=== PATIENT | female | born 1950 | race Caucasian/White ===

== ENCOUNTER → 2017-12-24 09:39 | Outpatient (CLI) | payer MEDICARE, SELFPAY ==
--- NOTE | 2017-12-24 | DI.RAD.S_ITS ---
PROCEDURE: XR HIP W PEL IF DONE RT 2V INDICATIONS: RIGHT HIP PAIN TECHNIQUE: 2 views of the hip were acquired. COMPARISON: [facility], CR, HIP 2V RIGHT, 08/28/2007, 15:49. [facility], CR, XR HIP 2VW LT, 07/12/2015, 10:13. FINDINGS: Bones: No fractures or dislocations. No suspicious bony lesions. The visualized pelvic ring appears intact. Subchondral sclerosis and spurring is present. There is mild to moderate hip joint space narrowing. Lower lumbar discogenic changes are seen. Soft tissues: No suspicious soft tissue calcifications or masses. IMPRESSION: [id number] right hip joint degeneration, progressed since 08/28/07. Dictated by: Timothy Lim M.D. on 12/24/2017 at 14:16 Approved by: Timothy Lim M.D. on 12/24/2017 at 14:17
== END ==
PROVIDERS: PCP Internal Medicine; Visit Provider Internal Medicine
DX: M25.551 Pain in right hip (principal); M16.11 Unilateral primary osteoarthritis, right hip
CPT/HCPCS: 73502

== ENCOUNTER → 2019-03-31 11:01 | Outpatient (CLI) | payer MEDICARE, MEDICAID, SELFPAY ==
[2019-03-31 12:04] LABS: Add Manual Diff / Slide Review NO; Basophils Absolute Auto 100 /uL (0-100); Basophils Percent Auto 0.9 % (0-2); Eosinophils Absolute Auto 100 /uL (0-450); Eosinophils Percent Auto 1.5 % (2-4); Hematocrit 41.3 % (36-46); Hemoglobin 14.1 g/dL (12.0-16.0); Lymphocytes Absolute Auto 1600 /uL (1100-4500); Mean Corpuscular Hemoglobin 32.1 PG (26-34); Mean Corpuscular Volume 94.4 fL (80-100); Monocytes Absolute Auto 400 /uL (0-900); Monocytes Percent Auto 5.2 % (3-14); Neutrophils Absolute Auto 5500 /uL (1500-7000); Neutrophils Percent Auto 71.4 % (50-75); Platelet Count 326 X10^3/uL (150-400); Red Blood Cell Count 4.38 X10^6/uL (4.0-5.2); Red Cell Distribution Width 13.5 % (11.6-14.8); White Blood Cell Count 7.7 X10^3/uL (4.5-11.0)
[2019-03-31 12:23] LABS: Erythrocyte Sedimentation Rate 12 MM/HR (0-20)
[2019-03-31 12:28] LABS: Alanine Aminotransferase 15 IU/L (<35); Albumin 4.9 g/dL (3.5-5.0); Albumin Globulin Ratio 1.7 (1.0-2.8); Alkaline Phosphatase 82 U/L (38-126); Aspartate Aminotransferase 23 IU/L (14-36); BUN Creatinine Ratio 18.6 (6-22); Bilirubin Total 0.8 mg/dL (0.2-1.3); Blood Urea Nitrogen 13 mg/dL (7-17); Calcium 10.7 mg/dL (8.4-10.2); Carbon Dioxide 26 mmol/L (22-32); Chloride 104 mmol/L (98-107); Cholesterol 238 mg/dL (140-199); Estimated Glomerular Filt Rate > 60.0 mL/min (>60); Globulin 2.9 g/dL (1.7-4.1); Glucose 103 mg/dL (80-110); HDL Cholesterol 59 mg/dL (40-60); HEMOLYSIS < 15 (0-50); LDL Cholesterol Calculated 149 mg/dL (<100); Lipase 98 U/L (23-300); Potassium 4.2 mmol/L (3.4-5.1); Sodium 141 mmol/L (137-145); Total Protein 7.8 g/dL (6.3-8.2); Triglycerides 152 mg/dL (35-150)
[2019-03-31 12:57] LABS: TSH w/ Reflex to FT4 1.37 uIU/mL (0.47-4.68)
[2019-03-31 16:44] LABS: Vitamin D 25 Hydroxy (D3) 25.4 ng/mL (30.0-100.0)
== END ==
PROVIDERS: Family Provider Internal Medicine; PCP Student in an Organized Health Care Education/Training Program; Visit Provider Student in an Organized Health Care Education/Training Program
DX: Z13.220 Encounter for screening for lipoid disorders (principal); K52.9 Noninfective gastroenteritis and colitis, unspecified; Z90.49 Acquired absence of other specified parts of digestive tract; Z91.89 Other specified personal risk factors, not elsewhere classified; K90.9 Intestinal malabsorption, unspecified; R10.12 Left upper quadrant pain
CPT/HCPCS: 36415; 80053; 80061; 82306; 83516; 83690; 84443; 85025; 85651

== ENCOUNTER → 2019-04-02 09:53 | Outpatient (CLI) | payer MEDICARE, MEDICAID, SELFPAY ==
[2019-04-08 14:19] LABS: Fecal Fat, Qualitative NORMAL (NORMAL)
[2019-04-10 09:30] LABS: Calprotectin, Stool < 15.6 mcg/g
[2019-04-12 10:41] LABS: H. Pylori Antigen Stool NOT DETECTED
== END ==
PROVIDERS: PCP Student in an Organized Health Care Education/Training Program; Visit Provider Student in an Organized Health Care Education/Training Program
DX: K52.9 Noninfective gastroenteritis and colitis, unspecified (principal); K90.9 Intestinal malabsorption, unspecified; R10.12 Left upper quadrant pain
CPT/HCPCS: 82710; 83993; 84376; 86677

== ENCOUNTER → 2019-04-07 10:02 | Outpatient (CLI) | payer MEDICARE, MEDICAID, SELFPAY ==
[2019-04-07 12:50] LABS: Occult Blood 1 Negative (Negative); Occult Blood 2 Negative (Negative)
[2019-04-07 12:51] LABS: Occult Blood 3 Negative (Negative)
== END ==
PROVIDERS: PCP Student in an Organized Health Care Education/Training Program; Visit Provider Student in an Organized Health Care Education/Training Program
DX: K52.9 Noninfective gastroenteritis and colitis, unspecified (principal); K90.9 Intestinal malabsorption, unspecified; R10.12 Left upper quadrant pain
CPT/HCPCS: 82270

== ENCOUNTER → 2019-07-27 09:57 | Outpatient (CLI) | payer MEDICARE, MEDICAID, SELFPAY ==
--- NOTE | 2019-07-27 | DI.CT.S_ITS ---
PROCEDURE: CT ABDOMEN PELVIS W CON INDICATIONS: Left upper quadrant pain TECHNIQUE: After the administration of oral and intravenous contrast, 5 mm thick sections acquired from the diaphragms to the symphysis. 5 mm thick coronal and sagittal reformats were performed. For radiation dose reduction, the following was used: automated exposure control, adjustment of mA and/or kV according to patient size. COMPARISON: [facility], CT, ABD/PELVIS W/CON (PNL), 08/18/2014, 14:06. FINDINGS: Image quality: There is mild motion artifact. ABDOMEN: Lung bases: There is mild subpleural scarring in the medial right lower lobe. Heart size is normal. Solid organs: Evaluation of the liver demonstrates no focal hepatic lesions. The gallbladder is surgically absent. Biliary system is non-dilated. Pancreas enhances normally. No peripancreatic fat stranding or fluid collections. No pancreatic duct dilatation. The spleen is normal in size. No adrenal nodules. Kidneys demonstrate no hydronephrosis. Peritoneum and bowel: Stomach, small bowel, and colon loops are normal in caliber and wall thickness. There is colonic diverticulosis without acute diverticulitis. There are scattered air-fluid levels throughout the colon suggestive of a gastroenteritis. No free fluid or air. Nodes and vessels: No retroperitoneal or mesenteric adenopathy. Aorta and inferior vena cava are normal in caliber. Miscellaneous: No ventral hernias. PELVIS: Genitourinary: Bladder wall thickness is normal. There is a small cyst in the right adnexa region measuring up to 2.3 x 1.3 cm which appears similar in appearance to the prior study. Miscellaneous: No inguinal hernias or adenopathy. Bones: No suspicious bony lesions. No vertebral body compression fractures. IMPRESSION: 1. Scattered air-fluid levels throughout the colon suggestive of a gastroenteritis. 2. Colonic diverticulosis without acute diverticulitis. Dictated by: Ashutosh Brennan M.D. on 07/27/2019 at 15:22 Approved by: Ashutosh Brennan M.D. on 07/27/2019 at 15:28
[2019-07-27 10:35] LABS: BUN Creatinine Ratio 28.6 (6-22); Blood Urea Nitrogen 18 mg/dL (7-17); Estimated Glomerular Filt Rate > 60.0 mL/min (>60)
== END ==
PROVIDERS: PCP Student in an Organized Health Care Education/Training Program; Referring Provider Internal Medicine Gastroenterology; Visit Provider Internal Medicine Gastroenterology
DX: R10.12 Left upper quadrant pain (principal); R11.0 Nausea; R63.4 Abnormal weight loss; K57.90 Diverticulosis of intestine, part unspecified, without perforation or abscess without bleeding; N94.89 Other specified conditions associated with female genital organs and menstrual cycle; Z90.49 Acquired absence of other specified parts of digestive tract; J98.4 Other disorders of lung
CPT/HCPCS: 36415; 74177; 82565; 84520; Q9967

== ENCOUNTER → 2019-07-29 08:27 | Outpatient (CLI) | payer MEDICARE, MEDICAID, SELFPAY ==
[2019-07-29 09:30] LABS: Vitamin D 25 Hydroxy (D3) 33.5 ng/mL (30.0-100.0)
[2019-07-30 07:35] LABS: Calcium 10.3 mg/dL (8.7-10.3); Parathyroid Hormone, Intact 34 pg/mL (15-65)
== END ==
PROVIDERS: PCP Student in an Organized Health Care Education/Training Program; Referring Provider Student in an Organized Health Care Education/Training Program; Visit Provider Student in an Organized Health Care Education/Training Program
DX: E55.9 Vitamin D deficiency, unspecified (principal)
CPT/HCPCS: 36415; 82306; 82310; 83970

== ENCOUNTER 2019-10-05 11:15 | Outpatient (RCR) | payer MEDICARE, SELFPAY ==
--- NOTE | 2019-09-27 16:17 | PT.OIE ---
Current Diagnoses Sciatica, unspecified side (09/27/19) Past Medical History (Last Updated 04/10/19 @ 20:07 by Mary Chavez) Abnormal Pap smear of cervix (Resolved ~1980) Asthma (Chronic ~1994) Cataracts, bilateral (Chronic ~2014) Cervical cancer (Inactive ~1980) Chicken pox (Resolved) Colon polyps (Inactive ~2004) Diverticular disease (Inactive ~2004) Hip pain (Chronic ~2009) Hypertension (Chronic ~2017) Measles (Resolved ~1959) Vertigo (Chronic ~2014) Past Surgical History (Last Updated 04/10/19 @ 20:07 by Mary Chavez) Anesthesia (Resolved) History of arthroplasty (Resolved ~08/2017) History of arthroscopy (Resolved ~07/2013) History of cholecystectomy (Resolved ~11/1974) History of hemicolectomy (Acute ~2005) History of hysterectomy (Resolved ~10/1980) Visit Care Team Role Provider Type Deonte Sparks MD Attending Provider Physician Primary Care Provider Referring Provider Specialty: Internal Medicine Address: [address] [place] [address], [address], [facility] Email: [email or web address] Physical Therapy Initial Evaluation PT-OP-A Visit Information Start: 09/27/19 14:43 Freq: Status: Active Protocol: Document 09/27/19 11:16 HH (Rec: 09/27/19 16:17 [email or web address]) Out-Patient Physical Therapy Visit Information Visit Information Visit Type Initial Evaluation Visit Start Time 11:16 Visit Stop Time 12:00 Total Visit Minutes 44 Visit Number 03/28 Number of MARKETING COMMUNICATION MANAGER Visits 0 Evaluation Information Evaluation Date 09/27/19 PT-OP-B Current Condition Start: 09/27/19 14:43 Freq: Status: Active Protocol: Document 09/27/19 11:16 HH (Rec: 09/27/19 16:17 [email or web address]) Current Condition History of Current Condition Onset Date >5 years ago Current Complaints c/o sciatica pain, R hip pain and difficulty in walking, poor activity crispin History of Current Condition Pt is a 68 yo female here for R sciatica and hip pain who has significant difficulty in walking. She had an accident that her R hip got kicked by a horse multiple times 6 years ago but x-ray showed no fx. She stated her R hip started hurting every since and keeping herself such as hiking to strength her hip seemed to help, but she havent done that for awhile. She c/o her pain has been significantly worse since June with intermittent burning/ lightening pain from her R hip to back of the thigh. No numbness / weakness noted. She currently has difficulty walking >200-300 feet or sit > 30 mins. Pt went to see Dr. Price and ordered MRI consult and participate physical therapy. Pt had a cortisone shot last year and that did not help. Pt reports standing short period of time and laying down relieve her symptoms. Prior Treatments and Tests X-ray from years ago showed - ve for fx Future Testing and Treatments Planned Pt would have MRI if Pt failed Treatment Goals Patient/Caregiver Goals 1. to relieve her pain so she can walk and sit as much as she can 2. to increase her hip strength and balance. Current Functional Impairments (Reported) Functional Limitations- ADL's unable to sit > [address] d/t pain. Functional Limitations- Mobility/Gait unable to walk > 200-300 ft without sitting breaks pt uses [facility] for mobility PT-OP-C Subjective Start: 09/27/19 14:43 Freq: Status: Active Protocol: Document 09/27/19 11:16 (Rec: 09/27/19 16:17 [email or web address]) Patient Questionnaires Oswestry Low Back Index Oswestry Score 62 Oswestry Impairment 60 to 79% Impaired (Score 60- 79) OP-PT Pain Assessment Location R buttock Intensity 8 Scale Used Numeric (0 - 10) Description Aching,Burning,Sharp,Shooting Frequency Intermittent Pain Aggravating Factors Position,Activity,Exercise, Walking,Bending Pain Alleviating Factors Inactivity,Lying Supine, Standing PT-OP-D Balance Start: 09/27/19 14:43 Freq: Status: Active Protocol: Document 09/27/19 11:16 (Rec: 09/27/19 16:17 [email or web address]) Balance Tests Single Limb Standing Single Limb- Right 0 Single Limb- Left 5 PT-OP-F Manual Assessment Start: 09/27/19 14:43 Freq: Status: Active Protocol: Document 09/27/19 11:16 (Rec: 09/27/19 16:17 [email or web address]) Manual Assessments Soft Tissue Assessment Soft Tissue Mobility Assessment significant tenderness to pressure at R piriformis and R hip extensors. Pt screamed for pain with PT pressure. PT-OP-G Mobility & Gait Start: 09/27/19 14:43 Freq: Status: Active Protocol: Document 09/27/19 11:16 HH (Rec: 09/27/19 16:17 [email or web address]) OP Gait Assessment Assistive Devices Assistive Device Straight Cane Gait Deviations General Gait Pattern Antalgic,Decreased Stride Length,Decreased Feet Clearance,Lateral Trunk Lean Comments Gait Comments pt amb with R knee valgus and significant internal rotated R hip. dec heel strike and push off,. PT-OP-H Neuro Start: 09/27/19 14:43 Freq: Status: Active Protocol: Document 09/27/19 11:16 HH (Rec: 09/27/19 16:17 [email or web address]) Sensation Evaluation Gross Sensation Gross Sensation WNL Deep Tendon Reflex & Clonus Assessment Deep Tendon Reflex Bilateral Achilles Deep Tendon Reflex 2+ Normal Bilateral Patellar Deep Tendon Reflex 2+ Normal PT-OP-J Posture/Palpation/Skin Start: 09/27/19 14:43 Freq: Status: Active Protocol: Document 09/27/19 11:16 HH (Rec: 09/27/19 16:17 [email or web address]) Posture Evaluation Position Standing Evaluation View Anterior Weight Distribution Weight Shifted Left,Decreased Wt.Bear on (R) Hip Posture (R) Internally Rotated Knee Posture (R) Ext. Tibial Torsion Ankle/Foot Posture (R) Pronated PT-OP-K Range of Motion Start: 09/27/19 14:43 Freq: Status: Active Protocol: Document 09/27/19 11:16 HH (Rec: 09/27/19 16:17 [email or web address]) Hip Goniometric Range of Motion Hip Right Active Hip ROM WFL No Internal Rotation 65 External Rotation 25 Left Active Hip ROM WFL Yes Internal Rotation 50 External Rotation 35 Hip ROM Limitations Hip ROM Limitations Pain Comments pain at end range of ER Knee Goniometric Range of Motion Knee Left Knee ROM WFL Yes Patient Position Prone Flexion Active (degrees) 110 Right Knee ROM WFL Yes Patient Position Prone Flexion Active (degrees) 100 PT-OP-L Special Tests Start: 09/27/19 14:43 Freq: Status: Active Protocol: Document 09/27/19 11:16 HH (Rec: 09/27/19 16:17 HH [email or web address]) Special Tests Lumbar Spine Special Tests Slump Test Results -ve B Hip Special Tests DANICA Test Results + ve R Comments pain noted at R hip joint Scour Test Test Results +ve R Straight Leg Raise Test Results -ve B PT-OP-M Strength Start: 09/27/19 14:43 Freq: Status: Active Protocol: Document 09/27/19 11:16 (Rec: 09/27/19 16:17 [email or web address]) Hip Strength Hip Manual Muscle Testing Right Flexion (L2) 3+ Fair+ Extension (S1) 3- Fair- Abduction 3- Fair- Adduction 4- Good- External Rotation 3- Fair- Internal Rotation 3- Fair- Left Flexion (L2) 4+ Good+ Extension (S1) 4+ Good+ Abduction 4+ Good+ Adduction 4+ Good+ Knee Strength Knee Manual Muscle Testing Left Flexion (S2) 4 Good Extension (L3) 4 Good Right Flexion (S2) 4 Good Extension (L3) 4 Good Ankle/Foot Strength Ankle and Foot Manual Muscle Testing Right Dorsiflexion (L4) 4+ Good+ Plantarflexion (S1) 4+ Good+ Inversion 4+ Good+ Eversion (S1) 4+ Good+ Left Dorsiflexion (L4) 4+ Good+ Plantarflexion (S1) 4+ Good+ Inversion 4+ Good+ Eversion (S1) 4+ Good+ Toe Strength Toe Manual Muscle Testing Left Great Toe Flexion 5 Normal Extension 5 Normal Right Great Toe Flexion 5 Normal Extension 5 Normal PT-OP-Q Treatments Start: 09/27/19 14:43 Freq: Status: Active Protocol: Document 09/27/19 11:16 (Rec: 09/27/19 16:17 [email or web address]) Manual Therapy Treatment Soft Tissue Mobilization R piriformis Mobilization Type Sustained Pressure,Trigger Point Release Intensity/Depth Superficial Body Position Prone Comments significant pain noted PT-OP-T Assessment and Plan Start: 09/27/19 14:43 Freq: Status: Active Protocol: Document 09/27/19 11:16 (Rec: 09/27/19 16:17 [email or web address]) Physical Therapy Assessment Rehab Potential Rehabilitation Potential Good Evaluation Complexity Number of Personal Factors/Comorbidities 3 or More Number of Body Systems Impaired 3 Clinical Presentation at Evaluation Stable Impairments Impairments Activity Tolerance,Balance, Functional Activities, Functional Mobility,Gait,Pain, Posture,ROM,Soft Tissue Mobility,Strength,Transfers Other Concerns Fall Risk yes Goals pain Impairment pt has significant pain for amb and sitting. Short Term Goal (STG) Pt will be able to amb without SPC and crispin sitting >40 minutes. STG Duration 4 weeks Shuttle Hand Goal (LTG) Pt will be able to amb without SPC for 1 mile with pain no more than 3/10. LTG Duration 8 weeks ROM Impairment lack of R hip ER Nursing Home Goal (LTG) Pt will gain >10 degrees of R ER to improve her gait quality with dec R knee valgus and internal rotated hip. LTG Duration 8 weeks Oswestry Impairment pt scores 62 Short Term Goal (STG) Pt will score 50 or lower on Oswestry LBP questionnaire STG Duration 4 weeks Shuttle Hand Goal (LTG) Pt will score 40 or lower on Oswestry LBP questionnaire to improve her quality of life. LTG Duration 8 weeks Assessment Summary Assessment This is a mod complexity evaluation for this 68 yo female here for significant R sciatica and R hip pain with difficulty in walking 6-9/10. Upon assessment, pt shows possible piriformis syndrome and hip labral disorder since she has very limited hip ER and extension. She amb with a SPC and a significant R knee valgus with internal rotated hip. Her pain is primarily reproduced by manual pressure at R piriformis but did feel relieved after manual therapy. There's no sensation or weakness noted distally which rule out radiculopathy from L/ S. Pt will benefit from skilled therapy to improve her hip ER, hip stabilizer strength, gait efficiency and overall balance so patient can amb with minimal discomfort without any assistive device. Physical Therapy Plan Frequency and Duration Frequency of Treatment 2x/Week Duration of Treatment 8 weeks Plan of Care Start Date 09/27/19 Plan of Care End Date 11/26/19 Therapeutic Interventions Therapeutic Interventions Aquatic Therapy,Balance Training,Gait Training,Home Exercise Program,Joint Mobilizations,Manual Therapy, Neuromuscular Re-education, Patient/Caregiver Education, Self-Care/Home Management,Soft Tissue Mobilization,Taping, Therapeutic Activities, Therapeutic Exercises Modalities Cold Pack/Ice Massage,Electric Stimulation,Hot Packs, Infrared Therapy,Traction- Mechanical Next Visit Focus/Plan Next Note Type Treatment Note Next Visit Plan check post session tolerance R glute ,piriformis, hip adductorsmanual therapy provide HEP with hip ER stretch, tennis ball release, quad stretch,
--- NOTE | 2019-09-27 16:17 | PT.OPPOC ---
Physical, Occupational & Speech Therapy At [facility] Current Diagnoses Sciatica, unspecified side (09/27/19) Visit Care Team Role Provider Type Deonte Sparks MD Attending Provider Physician Primary Care Provider Referring Provider Specialty: Internal Medicine Address: [address] [place] [address], [address], [address] Email: [email or web address] Plan Of Care PT-OP-T Assessment and Plan Start: 09/27/19 14:43 Freq: Status: Active Protocol: Document 09/27/19 11:16 HH (Rec: 09/27/19 16:17 [email or web address]) Physical Therapy Assessment Rehab Potential Rehabilitation Potential Good Evaluation Complexity Number of Personal Factors/Comorbidities 3 or More Number of Body Systems Impaired 3 Clinical Presentation at Evaluation Stable Impairments Impairments Activity Tolerance,Balance, Functional Activities, Functional Mobility,Gait,Pain, Posture,ROM,Soft Tissue Mobility,Strength,Transfers Other Concerns Fall Risk yes Goals pain Impairment pt has significant pain for amb and sitting. Short Term Goal (STG) Pt will be able to amb without SPC and crispin sitting >40 minutes. STG Duration 4 weeks Long-Term Goal (LTG) Pt will be able to amb without SPC for 1 mile with pain no more than 3/10. LTG Duration 8 weeks ROM Impairment lack of R hip ER Long-Term Goal (LTG) Pt will gain >10 degrees of R ER to improve her gait quality with dec R knee valgus and internal rotated hip. LTG Duration 8 weeks Oswestry Impairment pt scores 62 Short Term Goal (STG) Pt will score 50 or lower on Oswestry LBP questionnaire STG Duration 4 weeks Associate Material Handler Goal (LTG) Pt will score 40 or lower on Oswestry LBP questionnaire to improve her quality of life. LTG Duration 8 weeks Assessment Summary Assessment This is a mod complexity evaluation for this 68 yo female here for significant R sciatica and R hip pain with difficulty in walking 6-9/10. Upon assessment, pt shows possible piriformis syndrome and hip labral disorder since she has very limited hip ER and extension. She amb with a SPC and a significant R knee valgus with internal rotated hip. Her pain is primarily reproduced by manual pressure at R piriformis but did feel relieved after manual therapy. There's no sensation or weakness noted distally which rule out radiculopathy from L/ S. Pt will benefit from skilled therapy to improve her hip ER, hip stabilizer strength, gait efficiency and overall balance so patient can amb with minimal discomfort without any assistive device. Physical Therapy Plan Frequency and Duration Frequency of Treatment 2x/Week Duration of Treatment 8 weeks Plan of Care Start Date 09/27/19 Plan of Care End Date 11/26/19 Therapeutic Interventions Therapeutic Interventions Aquatic Therapy,Balance Training,Gait Training,Home Exercise Program,Joint Mobilizations,Manual Therapy, Neuromuscular Re-education, Patient/Caregiver Education, Self-Care/Home Management,Soft Tissue Mobilization,Taping, Therapeutic Activities, Therapeutic Exercises Modalities Cold Pack/Ice Massage,Electric Stimulation,Hot Packs, Infrared Therapy,Traction- Mechanical Next Visit Focus/Plan Next Note Type Treatment Note Next Visit Plan check post session tolerance R glute ,piriformis, hip adductorsmanual therapy provide HEP with hip ER stretch, tennis ball release, quad stretch, Plan of Care Dates Plan of Care Start Date 09/27/19 Plan of Care End Date 11/26/19 Electronically Signed by: Maged Ponce PT 09/27/19 [id number] Please Sign and Return: I have reviewed this Plan of Care and certify that the skilled therapy services above are required to meet the patient?s needs. Physician Signature Date Printed Name and Credentials Clinical Instructor Signature Printed Name and Credentials
--- NOTE | 2019-10-01 11:27 | PT-OP ANOTE ---
Pt called early this am and changed appt to 10/05/19. DEBURRER MACHINE called patient and having a rough day today and unable to walk to the [facility] to atttend appt so moved to next week. Pt stated would like to continue to gain benefits of what PT can offer. Confirmed 10/04 appts.
--- NOTE | 2019-10-05 12:12 | PT.OTN ---
Current Diagnoses Sciatica, unspecified side (10/05/19) Physical Therapy Treatment Note PT-OP-A Visit Information Start: 09/27/19 14:43 Freq: Status: Active Protocol: Document 10/05/19 11:18 TP (Rec: 10/05/19 12:47 TP [id number]) Out-Patient Physical Therapy Visit Information Visit Information Visit Type Treatment Note Visit Note Student ANDRES De Leon supervised by ANDRES Malik. Visit Start Time 11:18 Visit Stop Time 12:12 Total Visit Minutes 54 Visit Number 04/28 Number of [employer] Visits 1 PT-OP-B Current Condition Start: 09/27/19 14:43 Freq: Status: Active Protocol: Document 09/27/19 11:16 HH (Rec: 09/27/19 16:17 HH [email or web address]) Current Condition History of Current Condition Onset Date >5 years ago Current Complaints c/o sciatica pain, R hip pain and difficulty in walking, poor activity crispin History of Current Condition Pt is a 68 yo female here for R sciatica and hip pain who has significant difficulty in walking. She had an accident that her R hip got kicked by a horse multiple times 6 years ago but x-ray showed no fx. She stated her R hip started hurting every since and keeping herself such as hiking to strength her hip seemed to help, but she havent done that for awhile. She c/o her pain has been significantly worse since June with intermittent burning/ lightening pain from her R hip to back of the thigh. No numbness / weakness noted. She currently has difficulty walking >200-300 feet or sit > 30 mins. Pt went to see Dr. Price and ordered MRI consult and participate physical therapy. Pt had a cortisone shot last year and that did not help. Pt reports standing short period of time and laying down relieve her symptoms. Prior Treatments and Tests X-ray from years ago showed - ve for fx Future Testing and Treatments Planned Pt would have MRI if Pt failed Treatment Goals Patient/Caregiver Goals 1. to relieve her pain so she can walk and sit as much as she can 2. to increase her hip strength and balance. Current Functional Impairments (Reported) Functional Limitations- ADL's unable to sit > [address] d/t pain. Functional Limitations- Mobility/Gait unable to walk > 200-300 ft without sitting breaks pt uses SPC for mobility PT-OP-C Subjective Start: 09/27/19 14:43 Freq: Status: Active Protocol: Document 10/05/19 11:18 TP (Rec: 10/05/19 12:47 TP [id number]) OP-PT Subjective Patient Comments Patient Comments Pt reports pain today, more than 10/10. Using heat on back to relieve pain. Experiences shooting nerve pain in R leg that causes leg to give out. Nerve pain can't be predicted and doesn't have a particular time of day that is impacted more. Always uses a cane on same side as involved leg. Can do lawn care at home, using lightweight electric tools in standing position. Goes on walks on the beach (uneven terrain). Using tennis ball for self-massage is too intense in supine. 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 PT-OP-D Balance Start: 09/27/19 14:43 Freq: Status: Active Protocol: Document 09/27/19 11:16 HH (Rec: 09/27/19 16:17 HH [email or web address]) Balance Tests Single Limb Standing Single Limb- Right 0 Single Limb- Left 5 PT-OP-F Manual Assessment Start: 09/27/19 14:43 Freq: Status: Active Protocol: Document 09/27/19 11:16 HH (Rec: 09/27/19 16:17 HH [email or web address]) Manual Assessments Soft Tissue Assessment Soft Tissue Mobility Assessment significant tenderness to pressure at R piriformis and R hip extensors. Pt screamed for pain with PT pressure. PT-OP-G Mobility & Gait Start: 09/27/19 14:43 Freq: Status: Active Protocol: Document 09/27/19 11:16 HH (Rec: 09/27/19 16:17 HH [email or web address]) OP Gait Assessment Assistive Devices Assistive Device Straight Cane Gait Deviations General Gait Pattern Antalgic,Decreased Stride Length,Decreased Feet Clearance,Lateral Trunk Lean Comments Gait Comments pt amb with R knee valgus and significant internal rotated R hip. dec heel strike and push off,. PT-OP-H Neuro Start: 09/27/19 14:43 Freq: Status: Active Protocol: Document 09/27/19 11:16 HH (Rec: 09/27/19 16:17 HH [email or web address]) Sensation Evaluation Gross Sensation Gross Sensation WNL Deep Tendon Reflex & Clonus Assessment Deep Tendon Reflex Bilateral Achilles Deep Tendon Reflex 2+ Normal Bilateral Patellar Deep Tendon Reflex 2+ Normal PT-OP-J Posture/Palpation/Skin Start: 09/27/19 14:43 Freq: Status: Active Protocol: Document 09/27/19 11:16 HH (Rec: 09/27/19 16:17 [email or web address]) Posture Evaluation Position Standing Evaluation View Anterior Weight Distribution Weight Shifted Left,Decreased Wt.Bear on (R) Hip Posture (R) Internally Rotated Knee Posture (R) Ext. Tibial Torsion Ankle/Foot Posture (R) Pronated PT-OP-K Range of Motion Start: 09/27/19 14:43 Freq: Status: Active Protocol: Document 09/27/19 11:16 HH (Rec: 09/27/19 16:17 [email or web address]) Hip Goniometric Range of Motion Hip Right Active Hip ROM WFL No Internal Rotation 65 External Rotation 25 Left Active Hip ROM WFL Yes Internal Rotation 50 External Rotation 35 Hip ROM Limitations Hip ROM Limitations Pain Comments pain at end range of ER Knee Goniometric Range of Motion Knee Left Knee ROM WFL Yes Patient Position Prone Flexion Active (degrees) 110 Right Knee ROM WFL Yes Patient Position Prone Flexion Active (degrees) 100 PT-OP-L Special Tests Start: 09/27/19 14:43 Freq: Status: Active Protocol: Document 09/27/19 11:16 HH (Rec: 09/27/19 16:17 [email or web address]) Special Tests Lumbar Spine Special Tests Slump Test Results -ve B Hip Special Tests DANICA Test Results + ve R Comments pain noted at R hip joint Scour Test Test Results +ve R Straight Leg Raise Test Results -ve B PT-OP-M Strength Start: 09/27/19 14:43 Freq: Status: Active Protocol: Document 09/27/19 11:16 HH (Rec: 09/27/19 16:17 [email or web address]) Hip Strength Hip Manual Muscle Testing Right Flexion (L2) 3+ Fair+ Extension (S1) 3- Fair- Abduction 3- Fair- Adduction 4- Good- External Rotation 3- Fair- Internal Rotation 3- Fair- Left Flexion (L2) 4+ Good+ Extension (S1) 4+ Good+ Abduction 4+ Good+ Adduction 4+ Good+ Knee Strength Knee Manual Muscle Testing Left Flexion (S2) 4 Good Extension (L3) 4 Good Right Flexion (S2) 4 Good Extension (L3) 4 Good Ankle/Foot Strength Ankle and Foot Manual Muscle Testing Right Dorsiflexion (L4) 4+ Good+ Plantarflexion (S1) 4+ Good+ Inversion 4+ Good+ Eversion (S1) 4+ Good+ Left Dorsiflexion (L4) 4+ Good+ Plantarflexion (S1) 4+ Good+ Inversion 4+ Good+ Eversion (S1) 4+ Good+ Toe Strength Toe Manual Muscle Testing Left Great Toe Flexion 5 Normal Extension 5 Normal Right Great Toe Flexion 5 Normal Extension 5 Normal PT-OP-Q Treatments Start: 09/27/19 14:43 Freq: Status: Active Protocol: Document 10/05/19 11:18 TP (Rec: 10/05/19 12:47 TP [id number]) Therapeutic Exercises Supine Exercises HS stretch Side right Equipment Used towel behind knee Reps/Minutes [id number] Comments Cues for knee extension and ankle DF to increase stretch. Sunny stretch Side bilateral Reps/Minutes 30sec Comments Education for safe performance over EOB at home with TA facil. Lower body lumbar rotation Side bilateral Reps/Minutes 10reps x 2sets Comments Cues to perform slowly, emphasizing stretch to R side. Pelvic tilts Reps/Minutes 10reps x 2sets Comments Education for pelvis as bowl, tipping water out front and out back. TA Activation Reps/Minutes 10reps x 2sets Comments Cues to slightly draw belly button toward spine. Assist pt in palpation. Gait Training Gait Activity Ambulation with cane Device Used SPC Distance/Duration 20ft Comments Education for use of SPC in L hand instead of R. Adjustment of SPC to proper height. Cues for unloading R involved limb with use of L UE through SPC. Manual Therapy Treatment Soft Tissue Mobilization R piriformis Body Location R piriformis, R glute med, R proximal ITB Mobilization Type Myofascial Release Intensity/Depth Superficial Body Position L Sidelying Comments significant pain noted with increased pressure at R piriformis and R SI PT-OP-T Assessment and Plan Start: 09/27/19 14:43 Freq: Status: Active Protocol: Document 10/05/19 11:18 TP (Rec: 10/05/19 12:47 TP [id number]) Physical Therapy Assessment Goals pain Impairment pt has significant pain for amb and sitting. Short Term Goal (STG) Pt will be able to amb without SPC and crispin sitting >40 minutes. STG Duration 4 weeks Rush Seater Goal (LTG) Pt will be able to amb without SPC for 1 mile with pain no more than 3/10. LTG Duration 8 weeks ROM Impairment lack of R hip ER Half-Way Goal (LTG) Pt will gain >10 degrees of R ER to improve her gait quality with dec R knee valgus and internal rotated hip. LTG Duration 8 weeks Oswestry Impairment pt scores 62 Short Term Goal (STG) Pt will score 50 or lower on Oswestry LBP questionnaire STG Duration 4 weeks Rush Seater Goal (LTG) Pt will score 40 or lower on Oswestry LBP questionnaire to improve her quality of life. LTG Duration 8 weeks Assessment Summary Assessment Pt experiencing significant trigger points in R hip and near lateral sacrum/coccyx, which are dense and tender to palpate. Pt tolerates superficial pressure during STM to R piriformis, glute med , proximal ITB. Moderate pressure induces pain. Education for TA activation to stabilize low back and hip. Pt able to demonstrate isometric hold and palpate. Pt prefers a posterior pelvic tilt position, and is able to find it and support hips in this position with pillows for an illiacus release. Pt education for supporting pelvis and knees in position of comfort for sleeping. While scooting to edge of mat table for Sunny stretch, pt c/o cramping in R HS. Cues to push through heel and midfoot when bridging rather than pulling back from heel. HS stretch performed with towel with relief to R HS. In seated position, cues for hip ER. B adductors overactive due to history of horseback riding. Pt education for use of SPC in L hand to offload weight from R involved leg. SPC adjustment to proper height. Pt agreeable to scheduling more appointments for further PT tx. Physical Therapy Plan Frequency and Duration Frequency of Treatment 2x/Week Duration of Treatment 8 weeks Plan of Care Start Date 09/27/19 Plan of Care End Date 11/26/19 Therapeutic Interventions Therapeutic Interventions Aquatic Therapy,Balance Training,Gait Training,Home Exercise Program,Joint Mobilizations,Manual Therapy, Neuromuscular Re-education, Patient/Caregiver Education, Self-Care/Home Management,Soft Tissue Mobilization,Taping, Therapeutic Activities, Therapeutic Exercises Modalities Cold Pack/Ice Massage,Electric Stimulation,Hot Packs, Infrared Therapy,Traction- Mechanical Next Visit Focus/Plan Next Note Type Treatment Note Next Visit Plan Assess repsonse to previous tx . Assess for pelvic and sacral alignment. Education for use of tennis ball for self-STM against wall, rather than supine. Assess carryover for safe use of SPC. Progress stretching and strengthening for R hip. R piriformis stretch in supine/ sitting dependent on pt tolerance. QL stretch.
--- NOTE | 2019-11-11 09:41 | PT.OPDS ---
Current Diagnoses Sciatica, unspecified side (10/05/19) Visit Care Team Role Provider Type Deonte Sparks MD Attending Provider Physician Primary Care Provider Referring Provider Specialty: Internal Medicine Address: [address] [place] [address], [address], [address] Email: [email or web address] Visit Number Visit Number 04/28 Discharge Summary PT-OP-T Assessment and Plan Start: 09/27/19 14:43 Freq: Status: Active Protocol: Document 11/11/19 09:40 (Rec: 11/11/19 09:41 [email or web address]) Physical Therapy Assessment Assessment Summary Assessment pt called in and requested to be d/c from PT.
== END 2019-11-12 08:24 ==
LOC: PHYS 11:15
PROVIDERS: PCP Student in an Organized Health Care Education/Training Program; Referring Provider Student in an Organized Health Care Education/Training Program; Visit Provider Student in an Organized Health Care Education/Training Program
DX: M54.30 Sciatica, unspecified side (principal)
CPT/HCPCS: 97110; 97140; 97162

== ENCOUNTER → 2019-10-25 08:47 | Outpatient (CLI) | payer MEDICARE, MEDICAID, SELFPAY ==
[2019-10-25 09:05] LABS: Add Manual Diff / Slide Review NO; Basophils Absolute Auto 100 /uL (0-100); Basophils Percent Auto 1.1 % (0-2); Eosinophils Absolute Auto 400 /uL (0-450); Eosinophils Percent Auto 4.8 % (2-4); Hemoglobin 13.4 g/dL (12.0-16.0); Lymphocytes Absolute Auto 3800 /uL (1100-4500); Lymphocytes Percent Auto 45.4 % (25-40); Mean Corpuscular HGB Conc 33.6 % (30-36); Mean Corpuscular Hemoglobin 33.2 PG (26-34); Mean Corpuscular Volume 98.8 fL (80-100); Monocytes Absolute Auto 500 /uL (0-900); Neutrophils Absolute Auto 3600 /uL (1500-7000); Neutrophils Percent Auto 42.7 % (50-75); Platelet Count 310 X10^3/uL (150-400); Red Blood Cell Count 4.05 X10^6/uL (4.0-5.2); Red Cell Distribution Width 13.9 % (11.6-14.8); White Blood Cell Count 8.4 X10^3/uL (4.5-11.0)
[2019-10-25 09:29] LABS: Alanine Aminotransferase 20 IU/L (<35); Albumin 4.6 g/dL (3.5-5.0); Albumin Globulin Ratio 1.6 (1.0-2.8); Alkaline Phosphatase 73 U/L (38-126); Aspartate Aminotransferase 22 IU/L (14-36); BUN Creatinine Ratio 29.7 (6-22); Bilirubin Total 0.8 mg/dL (0.2-1.3); Blood Urea Nitrogen 19 mg/dL (7-17); Calcium 10.1 mg/dL (8.4-10.2); Carbon Dioxide 20 mmol/L (22-32); Chloride 109 mmol/L (98-107); Estimated Glomerular Filt Rate > 60.0 mL/min (>60); Globulin 2.8 g/dL (1.7-4.1); Glucose 117 mg/dL (80-110); HEMOLYSIS < 15 (0-50); Potassium 4.1 mmol/L (3.4-5.1); Sodium 138 mmol/L (137-145); Total Protein 7.4 g/dL (6.3-8.2)
[2019-10-25 09:37] LABS: Prealbumin 31.4 mg/dL (17.6-36.0)
[2019-10-25 09:59] LABS: TSH w/ Reflex to FT4 0.86 uIU/mL (0.47-4.68)
[2019-10-25 10:01] LABS: Cortisol AM (Before 10AM) 8.13 ug/dL (4.46-22.7)
[2019-10-25 10:19] LABS: Vitamin B12 218 pg/mL (239-931)
[2019-10-25 16:29] LABS: Hemoglobin A1C% w Est Avg Glu 5.4 % (4.0-6.0)
== END ==
PROVIDERS: PCP Student in an Organized Health Care Education/Training Program; Referring Provider Student in an Organized Health Care Education/Training Program; Visit Provider Student in an Organized Health Care Education/Training Program
DX: M54.30 Sciatica, unspecified side (principal); R11.0 Nausea; R25.1 Tremor, unspecified; R63.0 Anorexia; E87.8 Other disorders of electrolyte and fluid balance, not elsewhere classified; R73.9 Hyperglycemia, unspecified
CPT/HCPCS: 36415; 80053; 82533; 82607; 83036; 84134; 84443; 85025

== ENCOUNTER → 2020-02-10 08:57 | Outpatient (CLI) | payer MEDICARE, MEDICAID, SELFPAY ==
[2020-02-10 09:58] LABS: BUN Creatinine Ratio 26.8 (6-22); Blood Urea Nitrogen 19 mg/dL (7-17); Calcium 10.2 mg/dL (8.4-10.2); Carbon Dioxide 25 mmol/L (22-32); Chloride 109 mmol/L (98-107); Estimated Glomerular Filt Rate > 60.0 mL/min (>60); Glucose 113 mg/dL (80-110); HEMOLYSIS < 15 (0-50); Potassium 4.5 mmol/L (3.4-5.1); Sodium 139 mmol/L (137-145)
== END ==
PROVIDERS: PCP Student in an Organized Health Care Education/Training Program; Referring Provider Student in an Organized Health Care Education/Training Program; Visit Provider Student in an Organized Health Care Education/Training Program
DX: E83.52 Hypercalcemia (principal); N20.0 Calculus of kidney
CPT/HCPCS: 36415; 80048; 84100

== ENCOUNTER → 2020-05-17 13:06 | Outpatient (CLI) | payer MEDICARE, MEDICAID, SELFPAY ==
[2020-05-17] MEDS: COVID-19 VACC, Ad26(JANSSEN)/PF 0.5 ML IM (13:26)
== END ==
PROVIDERS: PCP Student in an Organized Health Care Education/Training Program; Visit Provider Internal Medicine
DX: Z23 Encounter for immunization (principal)
CPT/HCPCS: 0031A; 91303

== ENCOUNTER → 2020-06-01 09:21 | Outpatient (CLI) | payer MEDICARE, MEDICAID, SELFPAY ==
[2020-06-01 10:15] LABS: Add Manual Diff / Slide Review NO; Basophils Absolute Auto 100 /uL (0-100); Basophils Percent Auto 0.8 % (0-2); Eosinophils Absolute Auto 400 /uL (0-450); Eosinophils Percent Auto 3.7 % (2-4); Hematocrit 40.8 % (36-46); Hemoglobin 13.8 g/dL (12.0-16.0); Lymphocytes Absolute Auto 3200 /uL (1100-4500); Lymphocytes Percent Auto 32.5 % (25-40); Mean Corpuscular HGB Conc 33.8 % (30-36); Mean Corpuscular Hemoglobin 33.4 PG (26-34); Mean Corpuscular Volume 98.8 fL (80-100); Monocytes Absolute Auto 500 /uL (0-900); Monocytes Percent Auto 5.3 % (3-14); Neutrophils Absolute Auto 5700 /uL (1500-7000); Neutrophils Percent Auto 57.7 % (50-75); Platelet Count 319 X10^3/uL (150-400); Red Blood Cell Count 4.13 X10^6/uL (4.0-5.2); Red Cell Distribution Width 13.9 % (11.6-14.8); White Blood Cell Count 9.9 X10^3/uL (4.5-11.0)
[2020-06-01 10:50] LABS: Alanine Aminotransferase 18 IU/L (<35); Albumin 4.9 g/dL (3.5-5.0); Albumin Globulin Ratio 1.7 (1.0-2.8); Alkaline Phosphatase 77 U/L (38-126); Aspartate Aminotransferase 26 IU/L (14-36); BUN Creatinine Ratio 23.9 (6-22); Bilirubin Total 0.8 mg/dL (0.2-1.3); Blood Urea Nitrogen 17 mg/dL (7-17); Calcium 10.8 mg/dL (8.4-10.2); Carbon Dioxide 25 mmol/L (22-32); Chloride 105 mmol/L (98-107); Estimated Glomerular Filt Rate > 60.0 mL/min (>60); Globulin 2.9 g/dL (1.7-4.1); Glucose 105 mg/dL (80-110); HEMOLYSIS < 15 (0-50); Lipase 451 U/L (23-300); Potassium 4.7 mmol/L (3.4-5.1); Sodium 140 mmol/L (137-145); Total Protein 7.8 g/dL (6.3-8.2)
[2020-06-02 15:08] LABS: Interpretation Negative (Negative)
== END ==
PROVIDERS: PCP Student in an Organized Health Care Education/Training Program; Referring Provider Family Medicine; Visit Provider Family Medicine
DX: I10 Essential (primary) hypertension (principal); R10.9 Unspecified abdominal pain; R11.0 Nausea; R63.4 Abnormal weight loss
CPT/HCPCS: 36415; 80053; 83013; 83690; 85025; 99214

== ENCOUNTER → 2020-06-21 10:02 | Outpatient (CLI) | payer MEDICARE, MEDICAID, SELFPAY ==
[2020-06-21 11:58] LABS: COVID19 -Nasal RAPID Negative (Negative)
== END ==
PROVIDERS: PCP Student in an Organized Health Care Education/Training Program; Visit Provider Surgery
DX: Z20.822 Contact with and (suspected) exposure to COVID-19 (principal)
CPT/HCPCS: 87635; C9803

== ENCOUNTER 2020-06-22 14:07 | Day surgery (SDC) | payer MEDICARE, MEDICAID, SELFPAY ==
[2020-06-22] VITALS (8 sets, daily range): BP systolic 124–154; BP diastolic 73–87; PULSE 66–86; RESP 16–20; TEMP 36.6–36.9; O2SAT 95–99; BMI 28.3
[2020-06-22] MEDS: LACTATED RINGERS 1,000 ML 200 ML IV (14:45)
--- NOTE | 2020-06-22 15:46 | PM.PREOP ---
Pre-operative Note Interval Note History & Physical reviewed/Exam performed by Physician: Yes Changes to H&P: No
--- NOTE | 2020-06-22 16:27 | PM.OP.ENDO ---
Operative Date/Time/Diagnoses Date of procedure: 06/22/20 Time of procedure: 16:27 Pre-op diagnosis: Abdominal pain Post-op diagnosis: other (Gastritis, esophagitis) Procedure & Clinicians Study performed: Esophagoduodenoscopy Same procedure as scheduled: Yes Indications: Abdominal pain and nausea Surgeon: George Bryant Procedure Notes Procedure in detail: Patient placed in left lateral decubitus position. Time out was performed. Procedural sedation was administered with Versed and Fentanyl. A bite block was placed. the scope was inserted into the mouth and advanced through the esophagus and into the stomach. Stomach was notable for mild gastritis no bennie ulcer. The pylorus was intubated and the duodenum was normal to the 2nd portion. The scope was retroflexed within the stomach and there was a no hiatal hernia. The scope was withdrawn into the esophagus there was mild esophagitis. I plan to do a biopsy of the stomach and esophagus however the patient became extremely difficult to sedate thrashing about and the procedure was aborted at that point. Complications: none Impression: Esophagitis, gastritis Post-procedure Recommendations: Reflux diet Plan for aftercare: Omeprazole 20 mg b.i.d.
[2020-06-22] MEDS: MIDAZOLAM 5 MG/5 ML VIAL IV (16:28)
[2020-06-22] MEDS: fentaNYL 250 MCG/5 ML INJ IV (16:29)
[2020-06-22] MEDS: LIDOCAINE 4% SOLN 50 ML 20 ML TOP (16:30)
== END 2020-06-22 17:12 | disposition home or self-care (01) ==
PROVIDERS: PCP Family Medicine; Referring Provider Surgery; Visit Provider Surgery
PROC: 0DJ08ZZ Inspection of Upper Intestinal Tract, Via Natural or Artificial Opening Endoscopic (ICD-10-PCS; CPT 43235; principal; 2020-06-22 15:15)
DX: K20.90 Esophagitis, unspecified without bleeding (principal); K29.70 Gastritis, unspecified, without bleeding; R63.4 Abnormal weight loss
CPT/HCPCS: 43235; 43239; J2250; J3010

== ENCOUNTER → 2020-07-10 09:20 | Outpatient (CLI) | payer MEDICARE, MEDICAID, SELFPAY ==
[2020-07-10 12:09] LABS: Alanine Aminotransferase 18 IU/L (<35); Albumin 4.4 g/dL (3.5-5.0); Albumin Globulin Ratio 1.6 (1.0-2.8); Alkaline Phosphatase 73 U/L (38-126); Aspartate Aminotransferase 26 IU/L (14-36); BUN Creatinine Ratio 24.2 (6-22); Bilirubin Total 0.6 mg/dL (0.2-1.3); Blood Urea Nitrogen 15 mg/dL (7-17); Calcium 10.6 mg/dL (8.4-10.2); Carbon Dioxide 26 mmol/L (22-32); Chloride 107 mmol/L (98-107); Estimated Glomerular Filt Rate > 60.0 mL/min (>60); Globulin 2.8 g/dL (1.7-4.1); Glucose 106 mg/dL (80-110); HEMOLYSIS < 15 (0-50); Lipase 122 U/L (23-300); Potassium 4.6 mmol/L (3.4-5.1); Sodium 140 mmol/L (137-145); Total Protein 7.2 g/dL (6.3-8.2)
[2020-07-11 11:21] LABS: Parathyroid Hormone, Intact 35 pg/mL (15-65)
== END ==
PROVIDERS: PCP Family Medicine; Referring Provider Family Medicine; Visit Provider Family Medicine
DX: R63.4 Abnormal weight loss (principal); K85.90 Acute pancreatitis without necrosis or infection, unspecified; E83.52 Hypercalcemia
CPT/HCPCS: 36415; 80053; 82310; 83690; 83970

== ENCOUNTER → 2020-07-24 09:59 | Outpatient (CLI) | payer MEDICARE, SELFPAY ==
--- NOTE | 2020-07-24 11:01 | DI.CT.S_ITS ---
PROCEDURE: CT ABDOMEN PELVIS W CON INDICATIONS: Chronic abdominal pain and weight loss TECHNIQUE: After the administration of oral and intravenous contrast, 5 mm thick sections acquired from the diaphragms to the symphysis. 5 mm thick coronal and sagittal reformats were performed. For radiation dose reduction, the following was used: automated exposure control, adjustment of mA and/or kV according to patient size. COMPARISON: [facility], CT, CT ABDOMEN PELVIS W CON, 07/27/2019, 11:00. FINDINGS: Image quality: Excellent. ABDOMEN: Lung bases: Lung bases are clear. Heart size is normal. Solid organs: Liver is normal in size and enhancement. Gallbladder is surgically absent. Biliary system is non-dilated. Pancreas enhances normally. Spleen is normal in size and enhancement. No adrenal nodules. Kidneys are normal in size and enhancement, without hydronephrosis. Peritoneum and bowel: Stomach, small bowel, and colon loops are normal in caliber and wall thickness. Descending and sigmoid diverticulosis without acute diverticulitis. No free fluid or air. The appendix is not visible. Nodes and vessels: No retroperitoneal or mesenteric adenopathy. Aorta and inferior vena cava are normal in caliber. Miscellaneous: No ventral hernias. PELVIS: Genitourinary: Bladder wall thickness is normal. The uterus is absent. Miscellaneous: No inguinal hernias or adenopathy. Bones: No suspicious bony lesions. Degenerative facet disease in the lower lumbar spine. Multilevel disc height loss in the upper lumbar spine. No vertebral body compression fractures. IMPRESSION: 1. No acute process. 2. No evidence of neoplasm. Dictated by: Anisha Petersen M.D. on 07/24/2020 at 15:44 Approved by: Anisha Petersen M.D. on 07/24/2020 at 15:49
== END ==
PROVIDERS: PCP Family Medicine; Referring Provider Family Medicine; Visit Provider Family Medicine
DX: R10.9 Unspecified abdominal pain; R63.4 Abnormal weight loss; G89.29 Other chronic pain
CPT/HCPCS: 74177

== ENCOUNTER → 2020-08-01 07:48 | Outpatient (CLI) | payer MEDICARE, SELFPAY ==
[2020-08-01 08:14] LABS: Add Manual Diff / Slide Review NO; Basophils Absolute Auto 100 /uL (0-100); Eosinophils Absolute Auto 400 /uL (0-450); Eosinophils Percent Auto 4.8 % (2-4); Hematocrit 37.3 % (36-46); Hemoglobin 12.8 g/dL (12.0-16.0); Lymphocytes Absolute Auto 3300 /uL (1100-4500); Lymphocytes Percent Auto 42.6 % (25-40); Mean Corpuscular HGB Conc 34.2 % (30-36); Mean Corpuscular Hemoglobin 34.1 PG (26-34); Mean Corpuscular Volume 99.8 fL (80-100); Monocytes Absolute Auto 400 /uL (0-900); Monocytes Percent Auto 5.7 % (3-14); Neutrophils Absolute Auto 3500 /uL (1500-7000); Neutrophils Percent Auto 45.9 % (50-75); Platelet Count 289 X10^3/uL (150-400); Red Blood Cell Count 3.74 X10^6/uL (4.0-5.2); Red Cell Distribution Width 13.8 % (11.6-14.8); White Blood Cell Count 7.7 X10^3/uL (4.5-11.0)
[2020-08-01 08:30] LABS: Blood Urea Nitrogen 14 mg/dL (7-17); Carbon Dioxide 22 mmol/L (22-32); Chloride 109 mmol/L (98-107); Estimated Glomerular Filt Rate > 60.0 mL/min (>60); Glucose 102 mg/dL (80-110); HEMOLYSIS < 15 (0-50); Potassium 4.2 mmol/L (3.4-5.1); Sodium 139 mmol/L (137-145)
== END ==
PROVIDERS: PCP Family Medicine; Referring Provider Family Medicine; Visit Provider Family Medicine
DX: K52.9 Noninfective gastroenteritis and colitis, unspecified (principal); K92.2 Gastrointestinal hemorrhage, unspecified; R10.12 Left upper quadrant pain; R63.4 Abnormal weight loss; H35.371 Puckering of macula, right eye; H43.811 Vitreous degeneration, right eye
CPT/HCPCS: 36415; 80048; 85025

== ENCOUNTER → 2020-08-03 10:57 | Outpatient (CLI) | payer MEDICARE, SELFPAY | PROVIDERS: PCP Family Medicine; Referring Provider Family Medicine; Visit Provider Family Medicine | DX: Z01.818 Encounter for other preprocedural examination (principal) | CPT/HCPCS: 93005 ==

== ENCOUNTER → 2020-08-05 09:10 | Outpatient (CLI) | payer MEDICARE, SELFPAY ==
[2020-08-05 10:38] LABS: COVID19 -Nasal RAPID Negative (Negative)
== END ==
PROVIDERS: PCP Family Medicine; Referring Provider Physician Assistant; Visit Provider Physician Assistant
DX: Z01.812 Encounter for preprocedural laboratory examination (principal); Z20.822 Contact with and (suspected) exposure to COVID-19
CPT/HCPCS: 87635; C9803

== ENCOUNTER → 2020-10-09 14:03 | Outpatient (CLI) | payer MEDICARE, SELFPAY ==
[2020-10-10 05:13] LABS: Immunoglobulin A 122 mg/dL (87-352)
[2020-10-10 20:58] LABS: Tissue Transglutaminase IgA <2 U/mL (0-3); Tissue Transglutaminase IgG 3 U/mL (0-5)
== END ==
PROVIDERS: PCP Family Medicine; Referring Provider Internal Medicine Gastroenterology; Visit Provider Internal Medicine Gastroenterology
DX: R10.12 Left upper quadrant pain (principal); R11.0 Nausea; R63.4 Abnormal weight loss
CPT/HCPCS: 36415; 82784; 83516

== ENCOUNTER → 2020-12-27 11:03 | Outpatient (CLI) | payer MEDICARE, SELFPAY ==
--- NOTE | 2020-12-27 | DI.MRI.S_ITS ---
PROCEDURE: MR HEAD/BRAIN WO CON INDICATIONS: Tremor, unspecified TECHNIQUE: Non-contrast axial T1 spin echo, axial T2 fast spin echo, sagittal and axial FLAIR, coronal T2 fast spin echo, axial gradient echo, axial diffusion and ADC through the brain. COMPARISON: [facility], CT, CT BRAIN WO CON, 01/30/2015, 13:37. FINDINGS: Image quality: Diagnostic, with note made of motion artifact. CSF spaces: Ventricles appear symmetric in size and shape. Basal cisterns are patent. Mild bilateral symmetric chronic subdural hygromas can be seen. Brain: No intracranial bleeds or mass effects. There is cerebral volume loss for age. There are periventricular and deep white matter chronic small vessel ischemic changes. Brainstem appears normal. Diffusion-weighted images show no acute ischemic insults. No chronic ischemic insults. Normal intravascular flow voids are present. Skull and face: Calvarial bone marrow is normal in signal. Orbits are normal. Sinuses: Sinuses and mastoids are clear. IMPRESSION: No imaging explanation is found for the patient's presenting symptoms. Mild bilateral symmetric subdural hygromas, which are similar to 2015. Note is made of age-appropriate brain parenchymal volume loss and chronic small vessel ischemic changes. Dictated by: Harish Mendiola M.D. on 12/27/2020 at 10:54 Approved by: Harish Mendiola M.D. on 12/27/2020 at 10:55
== END ==
PROVIDERS: PCP Family Medicine; Referring Provider Psychiatry & Neurology Neurology; Visit Provider Psychiatry & Neurology Neurology
DX: R25.1 Tremor, unspecified (principal); R27.9 Unspecified lack of coordination; R27.0 Ataxia, unspecified; G96.08 Other cranial cerebrospinal fluid leak
CPT/HCPCS: 70551

== ENCOUNTER → 2021-01-09 10:53 | Outpatient (CLI) | payer MEDICARE, SELFPAY ==
[2021-01-09 14:06] LABS: Vitamin B12 Reflex MMA if <400 757 pg/mL (239-931)
== END ==
PROVIDERS: PCP Family Medicine; Referring Provider Family Medicine; Visit Provider Family Medicine
DX: E53.8 Deficiency of other specified B group vitamins (principal)
CPT/HCPCS: 36415; 82607

== ENCOUNTER → 2021-04-23 10:46 | Outpatient (CLI) | payer OTHER, SELFPAY ==
[2021-04-23 13:18] LABS: COVID19 -Nasal RAPID Negative (Negative)
== END ==
PROVIDERS: PCP Family Medicine; Visit Provider Family Medicine Sleep Medicine
DX: Z20.822 Contact with and (suspected) exposure to COVID-19 (principal)
CPT/HCPCS: 87635; C9803

== ENCOUNTER 2021-04-24 12:30 | Day surgery (SDC) | payer OTHER, SELFPAY ==
[2021-04-24 12:45] VITALS: PULSE 56; RESP 18; TEMP 37.5; O2SAT 98; BMI 27.4
[2021-04-24] MEDS: PROPARACAINE 0.5% OPHTH SOL 2 DROPS EYE-OP (13:03)
[2021-04-24] MEDS: CATARACT EYE COMPOUND (10 DROPS/SYRINGE) 3 DROPS EYE-OP (13:10)
--- NOTE | 2021-04-24 13:37 | PM.PREOP ---
Pre-operative Note Interval Note History & Physical reviewed/Exam performed by Physician: Yes Changes to H&P: No Addendum Addendum Note: There are no nonsurgical alternatives to the patient's condition. The patient's condition is expected to detetriorate. Delay may result in more complex future surgery.
--- NOTE | 2021-04-24 13:40 | PM.OP.1 ---
Operative Date/Time/Diagnoses Pre-op diagnosis: Nuclear cataract right eye Procedure & Clinicians Procedure: Cataract Surgery Same procedure as scheduled: Yes Surgeon: Billy Seymour Anesthesia Type: MAC +/- and Sedation Operative Notes Procedure in detail: Patient brought to the operating suite. Patient underwent general anesthesia because of high anxiety. Tetracaine drops placed in the right eye. Patient was prepped and draped in sterile manner. Wire lid speculum was placed in the eye. Betadine drops were placed on the eye. This was irrigated. Lidocaine jelly was placed on the eye. A paracentesis port was created with a side-port blade. 0.1 mL 1% preservative free lidocaine was injected into the anterior chamber. The anterior chamber was deepened with viscoelastic. 2.6 mm keratome was used to create a temporal clear corneal incision. Cystotome and Utrata forceps were used to create continuous tear capsulorrhexis. Balanced salt solution was used to hydro dissect the nucleus. The phacoemulsification handpiece was inserted and the nucleus was removed using the stop and chop technique. The irrigation aspiration handpiece was inserted and the remaining cortex was removed. Anterior chamber was deepened with viscoelastic. An Guerrero DIB00 intraocular lens with a power of 22.0 was injected into the capsular bag. Irrigation aspiration handpiece was inserted and the remaining viscoelastic was removed. Incision was hydrated with balanced salt solution and found to be leak free with pressure with Weck-Azeb sponges. 0.1 mL Vigamox injected anterior chamber. 0.3 mL Kenalog 10 mg was injected subconjunctivally. Lid speculum was removed. The patient left the operating room in excellent condition. Complications: none Post-operative Condition: stable Disposition: same day surgery
[2021-04-24] MEDS: MOXIFLOXACIN INJ 4 MG/0.8 ML VIAL 0.5 MG EYE-OP (14:09)
[2021-04-24] MEDS: PHENYLEPHRINE/LIDOCAINE VIAL (OR) 0.2 ML EYE-OP (14:09)
[2021-04-24] MEDS: TRIAMCINOLONE 50 MG/5 ML VIAL INJ (14:09)
[2021-04-24] MEDS: BALANCED SALT IRRIG SOLN NO.2 500 ML, EPINEPHrine 1 MG IRR (14:09)
[2021-04-24] MEDS: HYALURONATE SODIUM 30 MG-10 MG/ML SYRINGES 1 BOX INTRAOCULA (14:09)
[2021-04-24] MEDS: TETRACAINE 0.5% OPHTH DROPS 4 ML 2 DROPS EYE-OP (14:10)
[2021-04-24] MEDS: LIDOCAINE 2% (GLYDO) 6 ML GEL TOP (14:10)
[2021-04-24 15:00] VITALS: BP 148/86; PULSE 18; RESP 18; TEMP 37.2; O2SAT 97
== END 2021-04-24 15:30 | disposition home or self-care (01) ==
PROVIDERS: PCP Family Medicine; Referring Provider Ophthalmology; Visit Provider Ophthalmology
PROC: (CPT 66984; principal; 2021-04-24 14:15)
DX: H25.11 Age-related nuclear cataract, right eye (principal); I10 Essential (primary) hypertension; F41.9 Anxiety disorder, unspecified; J45.909 Unspecified asthma, uncomplicated
CPT/HCPCS: 66984; J0171; J2250; J2704; J3010; J3301

== ENCOUNTER 2021-05-30 12:29 | Emergency (ER) | payer OTHER, SELFPAY ==
[2021-05-30 12:33] VITALS: BP 132/82; PULSE 100; RESP 15; TEMP 36.8; O2SAT 98; BMI 27.4
--- NOTE | 2021-05-30 12:39 | DI.RAD.S_ITS ---
PROCEDURE: XR CHEST 1V INDICATIONS: chest pain TECHNIQUE: One view of the chest was acquired. COMPARISON: [facility], , CHEST 2VW, 09/28/2013, 11:13. FINDINGS: Surgical changes and devices: Postsurgical changes at the left acromioclavicular joint. Lungs and pleura: Lungs are clear. No pleural effusions or pneumothorax. Mediastinum: Mediastinal contours appear normal. Heart size is normal. Bones and chest wall: No suspicious bony lesions. Overlying soft tissues appear unremarkable. IMPRESSION: No acute cardiopulmonary abnormality. Dictated by: Rodolfo Ball M.D. on 05/30/2021 at 12:52 Approved by: Rodolfo Ball M.D. on 05/30/2021 at 12:53
[2021-05-30 12:57] VITALS: PULSE 100
[2021-05-30 13:00] VITALS: PULSE 91; RESP 22; O2SAT 99
[2021-05-30 13:17] LABS: Add Manual Diff / Slide Review NO; Basophils Absolute Auto 100 /uL (0-100); Basophils Percent Auto 1.1 % (0-2); Eosinophils Absolute Auto 300 /uL (0-450); Hematocrit 37.6 % (36-46); Lymphocytes Absolute Auto 2400 /uL (1100-4500); Lymphocytes Percent Auto 28.4 % (25-40); Mean Corpuscular HGB Conc 34.7 % (30-36); Mean Corpuscular Hemoglobin 34.1 PG (26-34); Mean Corpuscular Volume 98.3 fL (80-100); Monocytes Absolute Auto 500 /uL (0-900); Monocytes Percent Auto 5.3 % (3-14); Neutrophils Absolute Auto 5300 /uL (1500-7000); Neutrophils Percent Auto 62.2 % (50-75); Platelet Count 283 X10^3/uL (150-400); Red Blood Cell Count 3.82 X10^6/uL (4.0-5.2); Red Cell Distribution Width 13.5 % (11.6-14.8); White Blood Cell Count 8.5 X10^3/uL (4.5-11.0)
[2021-05-30 13:23] LABS: Prothrombin Time 10.7 SECONDS (10.1-12.7)
[2021-05-30 13:25] LABS: PTT Partial Thromboplastin Tim 30 SECONDS (26.4-36.2)
[2021-05-30 13:30] VITALS: PULSE 103; O2SAT 97
[2021-05-30 13:33] LABS: Alanine Aminotransferase 24 IU/L (<35); Albumin Globulin Ratio 1.6 (1.0-2.8); Alkaline Phosphatase 70 U/L (38-126); Aspartate Aminotransferase 41 IU/L (14-36); Bilirubin Total 1.3 mg/dL (0.2-1.3); Blood Urea Nitrogen 21 mg/dL (7-17); Carbon Dioxide 23 mmol/L (22-32); Chloride 108 mmol/L (98-107); Creatine Kinase 114 U/L (30-135); Estimated Glomerular Filt Rate > 60.0 mL/min (>60); Globulin 3.2 g/dL (1.7-4.1); Glucose 115 mg/dL (80-110); Lipase 190 U/L (23-300); Magnesium 1.7 mg/dL (1.6-2.3); Sodium 140 mmol/L (137-145); Total Protein 8.2 g/dL (6.3-8.2)
[2021-05-30 13:36] LABS: Potassium 4.4 mmol/L (3.4-5.1)
[2021-05-30 13:44] LABS: Troponin I 0.014 ng/mL (0.01-0.034)
[2021-05-30 13:48] LABS: CKMB % Relative Index 1.3 % (1.5-5.0); Creatine Kinase MB 1.48 ng/mL (<2.37); HEMOLYSIS 183 (0-50)
--- NOTE | 2021-05-30 13:49 | ED_ITS ---
HPI - Arrhythmia/Palpitations General Chief Complaint: Arrhythmia/Palpitations Stated Complaint: Irregular HB Time Seen by Provider: 05/30/21 12:59 Source: patient Mode of arrival: Ambulatory History of Present Illness HPI narrative: 70-year-old female who is here for evaluation of palpitations. She states that symptoms occurred yesterday and again this morning. She had no chest pain. No shortness of breath. No lightheadedness. She is not currently having symptoms. Not on blood thinners. Related Data Home Medications Medication Instructions Recorded Confirmed sennosides 8.6 mg tablet (senna) 8.6 mg PO BID 03/31/19 04/24/21 Previous Rx's Medication Instructions Recorded ondansetron 4 mg disintegrating 4 mg PO Q8H #90 tab 05/08/20 tablet propranolol 60 mg tablet 60 mg PO DAILY #90 tab 09/26/20 Allergies Allergy/AdvReac Type Severity Reaction Status Date / Time fentanyl Allergy combative Verified 05/30/21 12:33 codeine AdvReac Unknown Verified 05/30/21 12:33 Review of Systems Constitutional Constitutional: Reports system reviewed and no additional complaints, except as documented Cardiovascular Cardiovascular: Reports as per HPI and Reports system reviewed and no additional complaints, except as documented Respiratory Respiratory: Reports as per HPI and Reports system reviewed and no additional complaints, except as documented Integumentary/Breasts Skin/Breast: Reports system reviewed and no additional complaints, except as documented Neurologic Neurologic: Reports system reviewed and no additional complaints, except as documented Hematologic/Lymphatic On Anticoagulants: No Patient History Medical History Abnormal Pap smear of cervix (~1980) Asthma (~1994) Cataracts, bilateral (~2014) Cervical cancer (~1980) Chicken pox Colon polyps (~2004) Diverticular disease (~2004) Hip pain (~2009) Hypertension (~2017) Measles (~1960) Nausea Vertigo (~2014) Weight loss Surgical History Anesthesia History of arthroplasty (~08/2017) History of arthroscopy (~07/2013) History of cholecystectomy (~11/1974) History of hemicolectomy (~2005) History of hysterectomy (~10/1980) Family History Father Cancer History of heart disease Stroke Mother Diabetes mellitus History of heart disease Hypertension Sister Diabetes mellitus History of heart disease Hyperlipidemia Hypertension Social History household members: none occupational status: previously employed Smoking Status: Unknown if ever smoked alcohol intake: current substance use type: marijuana Smoking Status: Unknown if ever smoked alcohol intake frequency: 0-2 drinks per day Substance Use Type: marijuana Exam Initial Vital Signs Initial Vital Signs: Vital Signs Temperature 98.2 F 05/30/21 12:33 Pulse Rate 100 H 05/30/21 12:33 Respiratory Rate 15 05/30/21 12:33 Blood Pressure 132/82 05/30/21 12:33 Pulse Oximetry 98 05/30/21 12:33 HENMT Head: normal to inspection and normocephalic Resp Effort & Inspection: normal respiratory effort Auscultation: clear to auscultation bilaterally Cardio Rate: regular rate Rhythm: regular rhythm Skin General: no rashes or lesions noted Neuro General: patient alert, patient awake and moves all extremities Extrem General: normal to inspection and capillary refill normal Psych Appearance: grossly normal Course Orders Ordered: ED Orders 05/30/21 12:39 XR chest 1V Stat EKG-12 Lead Stat 05/30/21 13:00 Complete Blood Count AUTO DIFF Stat Comprehensive Metabolic Panel Stat Lipase Stat Magnesium Stat Partial Thromboplastin Time Stat Prothrombin Time INR Stat Troponin & CK Cardiac Panel Stat Vital Signs Vital signs: Vital Signs - 8 hr 05/30/21 12:33 05/30/21 12:57 05/30/21 13:00 Temperature 98.2 F Pulse Rate 100 H 100 H 91 H Respiratory Rate 15 22 Blood Pressure 132/82 Pulse Oximetry 98 99 05/30/21 13:30 05/30/21 14:00 05/30/21 14:20 Temperature Pulse Rate 103 H 78 Respiratory Rate Blood Pressure 150/98 H Pulse Oximetry 97 95 MDM - Arrhythmia/Palpitations Lab Data Attestation: I reviewed the patient's lab results. Result diagrams: 05/30/21 13:00 05/30/21 13:00 Labs: Lab Results 05/30/21 05/30/21 05/30/21 Range/Units 13:00 13:00 13:00 WBC 8.5 (4.5-11.0) X10^3/uL RBC 3.82 L (4.0-5.2) X10^6/uL Hgb 13.0 (12.0-16.0) g/dL Hct 37.6 (36-46) % MCV 98.3 (80-100) fL MCH 34.1 H (26-34) PG MCHC 34.7 (30-36) % RDW 13.5 (11.6-14.8) % Plt Count 283 (150-400) X10^3/uL Neut % (Auto) 62.2 (50-75) % Lymph % (Auto) 28.4 (25-40) % Pepin % (Auto) 5.3 (3-14) % Eos % (Auto) 3.0 (2-4) % Baso % (Auto) 1.1 (0-2) % Neut # (Auto) 5300 (0986-9717) /uL Lymph # (Auto) 2400 (2187-4630) /uL Pepin # (Auto) 500 (0-900) /uL Eos # (Auto) 300 (0-450) /uL Baso # (Auto) 100 (0-100) /uL PT 10.7 (10.1-12.7) SECONDS INR 1.0 (0.9-1.3) APTT 30 (26.4-36.2) SECONDS Sodium 140 (137-145) mmol/L Potassium 4.4 (3.4-5.1) mmol/L Chloride 108 H (98-107) mmol/L Carbon Dioxide 23 (22-32) mmol/L BUN 21 H (7-17) mg/dL Creatinine 0.70 (0.52-1.04) mg/dL Estimated GFR > 60.0 (>60) mL/min BUN/Creatinine Ratio 30.0 H (6-22) Glucose 115 H (80-110) mg/dL Calcium 10.0 (8.4-10.2) mg/dL Magnesium 1.7 (1.6-2.3) mg/dL Total Bilirubin 1.3 (0.2-1.3) mg/dL AST 41 H (14-36) IU/L ALT 24 (<35) IU/L Alkaline Phosphatase 70 (38-126) U/L Total Creatine Kinase 114 (30-135) U/L CK-MB (CK-2) 1.48 (<2.37) ng/mL CK-MB (CK-2) Rel Index 1.3 L (1.5-5.0) % Troponin I 0.014 (0.01-0.034) ng/mL Total Protein 8.2 (6.3-8.2) g/dL Albumin 5.0 (3.5-5.0) g/dL Globulin 3.2 (1.7-4.1) g/dL Albumin/Globulin Ratio 1.6 (1.0-2.8) Lipase 190 (23-300) U/L Imaging Data Chest x-ray: Radiologist's Impresson: [address] [address] XRay Report Signed Patient: Sima Salomon MR#: [id number] : 1950 Acct:[id number] Age/Sex: 70 / F Date of Service: 05/30/21 Loc: ED Accession Number: [id number] ?? Procedure: XR chest 1V Ordering Provider: Sriram Bernstein D.O. PROCEDURE:? XR CHEST 1V ? INDICATIONS:? chest pain ? TECHNIQUE:? One view of the chest was acquired.? ? COMPARISON:? [facility], , CHEST 2VW, 09/28/2013, 11:13. ? FINDINGS:? ? Surgical changes and devices:? Postsurgical changes at the left acromioclavicula r joint. ? Lungs and pleura:? Lungs are clear.? No pleural effusions or pneumothorax.? ? Mediastinum:? Mediastinal contours appear normal.? Heart size is normal.? ? Bones and chest wall:? No suspicious bony lesions.? Overlying soft tissues appear unremarkable.? ? IMPRESSION:? No acute cardiopulmonary abnormality. ? ? Dictated by: Rodolfo Ball M.D. on 05/30/2021 at 12:52 ? ? Approved by: Rodolfo Ball M.D. on 05/30/2021 at 12:53 ECG Data Attestation: I personally reviewed and interpreted this ECG as follows: Interpretation: Sinus rhythm Ventricular rate 100 Occasional PAC Normal QRS Normal QTC Nonspecific ST T wave changes MDM Narrative Medical decision making narrative: Labs an EKG and chest x-ray and exam are all unremarkable. She was not having symptoms the time of the exam. I did discuss with her palpitations. Discuss that she does need to be monitored when she is having symptoms in order to form a definitive diagnosis. Plan abuse to have her contact her primary doctor to discuss follow-up and a Holter monitor. She was given return precautions. She expressed understanding and agreement. Discharge Plan Departure Patient Disposition: Home Clinical Impression: Palpitations Instructions: Arrhythmias Activity Restrictions/Additional Instructions: I do recommend that you continue all of your medications as directed and contact your primary doctor to discuss the indications for a Holter monitor. Return to the emergency department for any new or worsening symptoms like we discussed. Prescriptions: No Action ondansetron 4 mg tablet,disintegrating 4 mg PO Q8H Qty: 90 1RF propranolol 60 mg tablet 60 mg PO DAILY Qty: 90 0RF sennosides [senna] 8.6 mg tablet 8.6 mg PO BID 0RF Referrals: Donaldo Chaidez MD [Primary Care Provider] -
[2021-05-30 14:00] VITALS: PULSE 78; O2SAT 95
[2021-05-30 14:20] VITALS: BP 150/98
== END 2021-05-30 14:28 | disposition home or self-care (01) ==
PROVIDERS: Emergency Provider Emergency Medicine; PCP Family Medicine
DX: R00.2 Palpitations (principal)
CPT/HCPCS: 36415; 71045; 80053; 82550; 82553; 83690; 83735; 84484; 85025; 85610; 85730; 93005; 99283; 99284

== ENCOUNTER → 2021-06-12 09:31 | Outpatient (CLI) | payer OTHER, SELFPAY ==
[2021-06-12 14:09] LABS: TSH w/ Reflex to FT4 1.32 uIU/mL (0.47-4.68)
== END ==
PROVIDERS: PCP Family Medicine; Referring Provider Registered Nurse Diabetes Educator; Visit Provider Registered Nurse Diabetes Educator
DX: R00.2 Palpitations (principal)
CPT/HCPCS: 36415; 84443

== ENCOUNTER → 2021-06-21 09:42 | Outpatient (CLI) | payer OTHER, SELFPAY ==
--- NOTE | 2021-07-05 09:23 | P.HOLT.S_ITS ---
Financial Planning Consultant Report Referral & Results Date Patient Seen: 06/21/21 Requesting provider: Mina Coulter Indication: Palpitations Duration of monitoring (days): 6 Diary information: There were 11 patient triggered events and 7 patient diary entries All of these patient events were variably associated with (within 45 seconds) sinus rhythm, simple PACs and simple PVCs Data: Minimum heart rate identified was 36 beats per minute at 02:50 on 06/27/2021 Maximum sinus heart rate was 120 beats per minute at 11:28 on 06/23/2021 Maximum overall heart rate was 167 beats per minute at 08:19 on 06/24/2021 during a run of SVT Less than 1% of identified beats were ventricular or supraventricular ectopic in origin, which would classify them as rare. No pauses of 3 seconds or longer or atrial fibrillation identified on this study There were 10 runs of SVT the fastest being the 7 beat run with rate of 167 as above, the longest was 8 beats in duration Impression: 6 day manager financial demonstrating simple PACs and PVCs without clear direct connection between anyone dysrhythmia and patient reported symptoms or patient events Very rare, very brief runs of SVT also identified as above Clinical correlation suggested
== END ==
PROVIDERS: PCP Family Medicine; Referring Provider Registered Nurse Diabetes Educator; Visit Provider Registered Nurse Diabetes Educator
DX: R00.2 Palpitations (principal)
CPT/HCPCS: 93242; 93244